=== PATIENT | male | born 1990 | race Caucasian/White ===

== ENCOUNTER → 2022-07-12 | Outpatient (CLI) | payer OTHER, SELFPAY ==
--- NOTE | 2022-07-12 15:35 | VAS_PTH ---
PATIENT: EDY ELAINE LOC: [facility] U#:[id number] AGE/SX: 32/M ROOM: RE07/12/[address]: Dr. Raphael Whitmore MD : 1990 BED: DIS: 07/12/2022 SPEC #: [id number] RECD: 07/12/22 16:48 STATUS: KENNEDY DAVE #: [id number] MEENAKSHI: 07/12/22 15:[address]: Raphael Whitmore DEPT: SURGICAL PATHOLOGY RECD BY: Vita Reynolds ENTERED: 07/13/22 09:57 SP TYPE: VAS OTHR DR: Tami [facility] Phys Tissues: A - Vas deferens, NOS B - Vas deferens, NOS Procedures: Surgery Specimen Level II HEADER OPERATION: Bilateral partial vasectomy PRE-OP DIAGNOSIS: Sterilization TISSUE SUBMITTED: A ? Right vas deferens, B ? Left vas deferens MICROSCOPIC DIAGNOSIS A. Right vas deferens, segmental vasectomy: Complete cross-section of vas deferens with no pathologic change. B. Left vas deferens, segmental vasectomy: Complete cross-section of vas deferens with no pathologic change. AM:rylan 07/14/2022 MICROSCOPIC DESCRIPTION Slides are reviewed. GROSS DESCRIPTION A - Received is one container designated right vas deferens. The specimen consists of a tubular segment of mijares soft tissue measuring 1.3 cm in length and 0.2 cm in diameter. The specimen is sectioned and submitted entirely in one cassette. B - Received is one container designated left vas deferens. The specimen consists of a tubular segment of mijares soft tissue measuring 1.8 cm in length and 0.2 cm in diameter. The specimen is sectioned and submitted entirely in one cassette. / SJ:rylan 07/13/2022 TC:4 CPT: 12116 x2
== END | disposition home or self-care (01) ==
PROVIDERS: Visit Provider Surgery
DX: Z30.2 Encounter for sterilization (principal)
CPT/HCPCS: 88302

== ENCOUNTER → 2022-10-11 | Outpatient (CLI) | payer OTHER, SELFPAY ==
[2022-10-11 13:58] LABS: Semen Analysis Post Vas ABSENT
[2022-10-14 09:35] LABS: Pathologist Review Reviewed
== END | disposition home or self-care (01) ==
PROVIDERS: Referring Provider Surgery; Visit Provider Surgery
DX: Z30.2 Encounter for sterilization (principal); Z98.52 Vasectomy status
CPT/HCPCS: 89321